=== PATIENT | male | born 1960 | race Caucasian/White ===

== ENCOUNTER 2019-11-17 17:19 | Emergency (ER) | payer MEDICAID ==
[~2019-11-17] VITALS: Ht 175.3 cm; Wt 90.9 kg
[2019-11-17 17:34] VITALS: BP 134/84
== END 2019-11-17 18:05 | disposition home or self-care (01) ==
LOC: ER 17:19
DX: K59.00 Constipation, unspecified (principal); R10.32 Left lower quadrant pain; J45.909 Unspecified asthma, uncomplicated; Z86.73 Personal history of transient ischemic attack (TIA), and cerebral infarction without residual deficits
CPT/HCPCS: 99281